=== PATIENT | male | born 1950 | race Caucasian/White ===

== ENCOUNTER 2025-04-07 11:11 | Emergency (ER) | payer OTHER, SELFPAY ==
[2025-04-07 11:11] VITALS: BP 175/97; PULSE 78; RESP 16; TEMP 37; O2SAT 99; BMI 27.1
--- NOTE | 2025-04-07 11:33 | EX.ED.DYSGE1 ---
HPI History of Present Illness Chief Complaint: Med Refill Informant: patient and family Narrative Narrative: 74-year-old male history of diabetes, [place], cardiac stents, pacemaker, valvular heart surgery. Treated for depression on Effexor 75 mg twice daily. He is traveling from out of state. He came to visit family is from [place]. He is currently out of his medication and just needs a med refill. He denies any illness. Recent Illness/Hospitalization: No PFSH PFSH Home Medications ?Medication ?Instructions ?Recorded ?Last Taken ?Type venlafaxine 75 mg tablet 75 mg PO BID #60 tabs 04/07/25 Unknown Rx Allergy/AdvReac Type Severity Reaction Status Date / Time No Known Allergies Allergy Verified 04/07/25 11:11 ROS ROS ED ROS Narrative Denies recent illness. Constitutional Constitutional ED: Denies chills or fever(s) Eyes Eyes: Denies blurry vision ENT ENT ED: Denies ear pain Cardiovascular Cardiovascular: Denies chest pain Respiratory/Chest Respiratory/Chest: Denies cough Gastrointestinal Gastrointestinal: Denies abdominal pain Genitourinary Genitourinary ED: Denies dysuria Musculoskeletal Musculoskeletal: Denies arthralgias Integumentary Denies abscess Neurologic Neurologic: Denies headache(s) Psychiatric Psychiatric: Denies anxiety Endocrine Endocrinology: Denies cold intolerance Hematologic/Lymphatic Hematologic/Lymphatic: Reports none Allergic/Immunologic Allergic/Immunologic ED: Denies mouth swelling, tongue swelling or urticaria EXAM Physical Exam Narrative Exam Narrative: Well-appearing 74-year-old male. Accompanied by family. Vital signs are stable afebrile. Pulse ox 99% on room air no hypoxia. H EENT exam pupils round reactive light. He is legally blind. But he does see shapes and light. Neck nontender. Lungs clear equal and symmetrical bilaterally. Heart regular rhythm no murmur. Abdomen soft nontender. Moving all 4 extremities. Nontender no edema. 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 Neurologically is awake alert. Answering questions following commands. Again legally blind and left leg weakness from a prior stroke. Const Vital Signs: 04/07/25 11:11 Temperature 98.6 F Temperature Source Oral Pulse Rate 78 Respiratory Rate 16 Blood Pressure 175/97 H Blood Pressure Mean 123 Pulse Ox 99 Oxygen Delivery Method Room Air Positive well nourished and well developed; Negative for obese, cachectic, contractures or unkempt General Appearance ED: well developed and NAD; Negative for unkempt, cachectic, contractures, cyanotic, diaphoretic or pallor Nutritional Appearance: Negative for cachectic or obese HEENT Reports moist mucous membranes Eyes PERRL and EOMs intact bilaterally Eyes Narrative: Legally blind. Neck supple and no JVD Chest Wall inspection of chest normal and palpation of chest normal Resp normal respiratory effort and clear to auscultation bilaterally Effort and Inspection: Negative for retractions Auscultation: Negative for rales, rhonchi or wheezes Cardio regular rate, regular rhythm, S1 normal heart sound, S2 normal heart sound and no murmurs GI normal to inspection, nondistended, normoactive bowel sounds, non-tender, non-distended, hepatosplenomegaly and no masses Palpation: soft; Negative for tender, guarding, mass or rebound tenderness present Back/Spine no CVA tenderness General Back: Negative for CVA tenderness Cervical Spine: Negative for cervical spine tenderness Extremity Negative for normal to inspection Extremity Narrative: Chronic left leg weakness from prior stroke. General Extremety ED: Negative for edema or tenderness General Extremity: Negative for edema Neuro oriented x3 Neuro Narrative: Legally blind. Decreased vision bilaterally. Left leg weakness. Motor Exam: strength abnormal Psych mental status grossly normal Appearance: Negative for unkempt Skin no rashes or lesions noted, no wounds and skin turgor normal General Skin Exam: Negative for jaundice or pallor MDM MDM MDM Narrative Medical decision making narrative: 74-year-old male presents for prescription refill. He is currently from out of town. He is out of his Effexor. We given a refill and discharge. Discharge Plan Triage Chief Complaint: Med Refill ED Provider: Samir Jauregui Dx/Rx/DC Orders Clinical Impression: Medication refill, History of depression, History of diabetes mellitus, History of CAD (coronary artery disease) Instructions: Med Refill Prescriptions: New venlafaxine 75 mg tablet 75 mg PO BID Qty: 60 1RF Activity Restrictions/Additional Instructions: Follow-up with your doctor as needed. Print Language: Finnish Disposition Disposition: Home, Self Care
[2025-04-07 11:42] VITALS: BP 162/70; PULSE 74; RESP 16; TEMP 36.6; O2SAT 99
== END 2025-04-07 11:44 | disposition home or self-care (01) ==
LOC: ED 11:44
PROVIDERS: Emergency Provider Emergency Medicine; Visit Provider Emergency Medicine
DX: Z76.0 Encounter for issue of repeat prescription (principal); E11.9 Type 2 diabetes mellitus without complications; F32.A Depression, unspecified; I25.10 Atherosclerotic heart disease of native coronary artery without angina pectoris; H54.8 Legal blindness, as defined in USA; Z95.5 Presence of coronary angioplasty implant and graft; Z79.899 Other long term (current) drug therapy
CPT/HCPCS: 99282